=== PATIENT | female | born 1960 | race Caucasian/White ===

== ENCOUNTER 2017-03-18 07:19 | Emergency (ER) | payer BC ==
[~2017-03-18] VITALS: Ht 157.5 cm; Wt 82.9 kg
[2017-03-18] MEDS ORDERED: ONDANSETRON 2MG/ML, 2ML IVPush ONE (08:00)
[2017-03-18] MEDS ORDERED: SODIUM CHLORIDE 0.9% 1,000ML IVBOLUS ONE (08:00)
[2017-03-18] MEDS ORDERED: FAMOTIDINE 20 MG/2 ML IVP ONE (08:00)
[2017-03-18] MEDS ORDERED: SODIUM CHLORIDE FLUSH 10ML SYR IVF ONE (08:00)
[2017-03-18 08:27] LABS: ASPARTATE AMINO TRANSFERASE 29 U/L (15-37); BLOOD UREA NITROGEN 15 mg/dL (7-18)
[2017-03-18] MEDS ORDERED: MORPHINE SULFATE 4 MG/ML, 1ML ONE ×2 (08:40→09:45)
[2017-03-18] MEDS ORDERED: FAMOTIDINE 20 MG/2 ML ONE (08:41)
[2017-03-18] MEDS ORDERED: ONDANSETRON 2MG/ML, 2ML ONE (08:41)
[2017-03-18] MEDS: MORPHINE SULFATE 4 MG/ML, 1ML IVPush PRN ×2 (08:42→09:46)
[2017-03-18 10:28] VITALS: BP 121/76
== END 2017-03-18 10:30 | disposition home or self-care (01) ==
LOC: ED 09:35
DX: R10.11 Right upper quadrant pain (principal); R10.13 Epigastric pain
CPT/HCPCS: 36415; 74022; 76700; 80053; 81001; 83690; 85025; 87086; 93005; 96361; 96374; 96375; 96376; 99285; J2405; J7030; S0028